=== PATIENT | female | born 1985 | race Two or more races ===

== ENCOUNTER 2019-12-06 13:33 | Emergency (ER) | payer SELFPAY ==
[~2019-12-06] VITALS: Ht 162.6 cm; Wt 90.9 kg
[2019-12-06 14:24] VITALS: BP 140/75
--- NOTE | 2019-12-06 14:26 | PHYS DOC ---
Adult General Chief Complaint Chief Complaint: ANXIETY/PANIC ATTACK HPI HPI Patient is a 33 year old female who presents with nausea, vomiting, headaches, sore throat is been ongoing for last 2 weeks. The patient also states for the last 2 weeks she is felt like she wants to end her life or hurt someone else. The patient states that she does not have these thoughts at this time. With her intermittent in nature. The patient denies hurting herself before. He also states he is been feeling extremely anxious. The patient states that she has these feelings frequently over last 5 years. Denies cough Complete ROS were reviewed and found to be within normal limits, except as docu mented in the HPI Allergies Allergies Allergies Coded Allergies Type Severity Reaction Last Updated Verified No Known Drug Allergies 12/06/19 No Physical Exam Physical Exam Constitutional: Well developed, well nourished, no acute distress, non-toxic appearance. [] HENT: Normocephalic, atraumatic, bilateral external ears normal, oropharynx moist, tonsils are 2+/4 with no oral exudates, nose normal. [] Eyes: PERRLA, EOMI, conjunctiva normal, no discharge. [] Neck: Normal range of motion, no tenderness, supple, no stridor. [] Cardiovascular:Heart rate regular rhythm, no murmur [] Lungs & Thorax: Bilateral breath sounds clear to auscultation [] Abdomen: Bowel sounds normal, soft, no tenderness, no masses, no pulsatile masses. [] Skin: Warm, dry, no erythema, no rash. [] Neurologic: Alert and oriented X 3, normal motor function, normal sensory functi on, no focal deficits noted. [] Psychologic: Affect normal, judgement normal, mood normal. [] Current Patient Data Vital Signs Vital Signs Date Time Temp Pulse Resp B/P (MAP) Pulse Ox O2 Delivery O2 Flow Rate FiO2 12/06/19 14:24 98.7 97 20 140/75 (96) 97 Room Air 98.7 Lab Values Laboratory Tests Test 12/06/19 14:30 Influenza Type A Antigen Negative (NEGATIVE) Influenza Type B Antigen Negative (NEGATIVE) Group A Streptococcus Rapid Negative (NEGATIVE) EKG EKG [] Radiology/Procedures Radiology/Procedures [] Course & Med Decision Making Course & Med Decision Making Pertinent Labs and Imaging studies reviewed. (See chart for details) We will consult PAT team as the patient's been having suicidal thoughts. We will also get a flu and strep test. FLU/STEP is negative. PAT team talked with the patient and will try to get the patient sent to [place]. See PAT team's note. Patient denied suicidal thoughts to the PAT team. She also denied these thoughts of the nurses. She appears to be having high anxiety. We will have her follow-up with her psychiatrist. Taran Disclaimer Taran Disclaimer This electronic medical record was generated, in whole or in part, using a voice recognition dictation system. Departure Departure Impression: Primary Impression: Anxiety Disposition: HOME, SELF-CARE Condition: STABLE Referrals: NO PCP (PCP) Patient Instructions: Anxiety and Panic Attacks Additional Instructions: Thank you for visiting [facility]. We appreciate you trusting us with your care. If any additional problems come up don't hesitate to return to visit us. Please follow up with your primary care provider so they can plan additional care if needed and know about the problem that you had. If symptoms worsen come back to the Emergency Department. Any concerning symptoms that start such as chest pain, shortness of air, weakness or numbness on one side of the body, running high fevers or any other concerning symptoms return to the ER. KRISS PRADO APRN Dec 06, 2019 14:26
[2019-12-06 15:13] LABS: INFLUENZA A PATIENT NEGATIVE (NEGATIVE); INFLUENZA B PATIENT NEGATIVE (NEGATIVE)
== END 2019-12-06 16:20 | disposition home or self-care (01) ==
LOC: ER 13:33
DX: F41.9 Anxiety disorder, unspecified (principal); R11.2 Nausea with vomiting, unspecified; J02.9 Acute pharyngitis, unspecified; R51 Headache
CPT/HCPCS: 87070; 87804; 87880; 99283

== ENCOUNTER 2022-01-31 16:37 | Emergency (ER) | payer SELFPAY ==
[~2022-01-31] VITALS: Ht 162.6 cm; Wt 84.9 kg
[2022-01-31 16:45] VITALS: BP 142/67
--- NOTE | 2022-01-31 17:54 | RAD ---
PROCEDURE: AP abdomen 01/31/2022 5:51 PM. REASON FOR STUDY: Reason: swallowed metal ring 2 weeks ago / Spl. Instructions: / History: . COMPARISON: None. FINDINGS: Gas is seen mostly in the colon along with moderate stool. There is no evidence of obstruct ion. A radiopaque foreign body is not identified. Gastric fundus is probably not included on the exam . IMPRESSION: No apparent foreign body or obstruction. Electronically signed by: Pa Jasso Jr., MD (01/31/2022 5:52 PM) BILL
--- NOTE | 2022-01-31 18:34 | PHYS DOC ---
Past Medical History Past Medical History: Anxiety Additional Past Medical Histor: "hypoglycemia, Psychosis, toe fungus" Past Surgical History: No Surgical History Smoking Status: Never Smoker Alcohol Use: None General Adult EDM: Chief Complaint: OTHER COMPLAINTS HPI: HPI: 36-year-old female presents with complaint of swallowing her wedding ring almost a week ago. She wants to know if it still inside of her. She was admitted to a psych facility and swallowed it because she thought it would be confiscated. She does not have any rectal pain currently. Denies any rectal bleeding. Denies any significant abdominal pain. Review of Systems: Review of Systems: Constitutional: Denies fever or chills. [] Eyes: Denies change in visual acuity. [] HENT: Denies nasal congestion or sore throat. [] Respiratory: Denies cough or shortness of breath. [] Cardiovascular: Denies chest pain or edema. [] GI: Denies abdominal pain, nausea, vomiting, bloody stools or diarrhea. [] : Denies dysuria. [] Musculoskeletal: Denies back pain or joint pain. [] Integument: Denies rash. [] Neurologic: Denies headache, focal weakness or sensory changes. [] Endocrine: Denies polyuria or polydipsia. [] Lymphatic: Denies swollen glands. [] Heart Score: C/O Chest Pain: No Risk Factors: Risk Factors: DM, Current or recent (<one month) smoker, HTN, HLP, family history of CAD, obesity. Risk Scores: Score 0 - 3: 2.5% MACE over next 6 weeks - Discharge Home Score 4 - 6: 20.3% MACE over next 6 weeks - Admit for Clinical Observation Score 7 - 10: 72.7% MACE over next 6 weeks - Early Invasive Strategies Allergies: Allergies: Allergies Coded Allergies Type Severity Reaction Last Updated Verified No Known Drug Allergies 12/06/19 No Physical Exam: PE: Constitutional: Well developed, well nourished, no acute distress, non-toxic appearance. [] HENT: Normocephalic, atraumatic, bilateral external ears normal, oropharynx moist, no oral exudates, nose normal. [] Eyes: PERRLA, EOMI, conjunctiva normal, no discharge. [] Neck: Normal range of motion, no tenderness, supple, no stridor. [] Cardiovascular:Heart rate regular rhythm, no murmur [] Lungs & Thorax: Bilateral breath sounds clear to auscultation [] Abdomen: Bowel sounds normal, soft, no tenderness, no masses, no pulsatile masses. [] Skin: Warm, dry, no erythema, no rash. [] Back: No tenderness, no CVA tenderness. [] Extremities: No tenderness, no cyanosis, no clubbing, ROM intact, no edema. [] Neurologic: Alert and oriented X 3, normal motor function, normal sensory function, no focal deficits noted. [] Psychologic: Affect normal, judgement normal, mood normal. [] Current Patient Data: Vital Signs: Vital Signs Date Time Temp Pulse Resp B/P (MAP) Pulse Ox O2 Delivery O2 Flow Rate FiO2 01/31/22 16:45 98.2 102 16 142/67 (92) 97 Room Air 98.2 EKG: EKG: [] Radiology/Procedures: Radiology/Procedures: [] Course & Med Decision Making: Course & Med Decision Making There is no foreign body seen on the plain films of the abdomen. Given the size of her typical ring I suspect she has already passed it. Nosto Disclaimer: Nosto Disclaimer: This electronic medical record was generated, in whole or in part, using a voice recognition dictation system. Departure Departure Impression: Primary Impression: Swallowed foreign body Disposition: 01 HOME / SELF CARE / HOMELESS Condition: STABLE Referrals: NO PCP (PCP) Additional Instructions: Your wedding ring has likely passed. In the future please do not swallow any foreign metallic objects JENNIFER BRYANT MD January 31, 2022 18:34
== END 2022-01-31 18:30 | disposition home or self-care (01) ==
LOC: ER 16:37
DX: T18.9XXA Foreign body of alimentary tract, part unspecified, initial encounter (principal); X58.XXXA Exposure to other specified factors, initial encounter; Y93.89 Activity, other specified; Y92.89 Other specified places as the place of occurrence of the external cause; Y99.8 Other external cause status
CPT/HCPCS: 74018; 99283